=== PATIENT | female | born 1980 | race Caucasian/White ===

== ENCOUNTER 2025-04-02 12:21 | Day surgery (SDC) | payer OTHER ==
[2025-04-02] MEDS: FERRIC CARBOXYMALTOSE 750 MG in SODIUM CHLORIDE 250 ML IVPB ONE (13:08)
[2025-04-02 13:59] VITALS: BP 105/72; PULSE 67; RESP 18; TEMP 98.2
== END 2025-04-02 13:59 | disposition home or self-care (01) ==
LOC: FINFUSION 12:21 → FM/S 12:27 → FINFUSION 13:59
PROVIDERS: ATTEND Family Medicine
PROC: 3E033GC Introduction of Other Therapeutic Substance into Peripheral Vein, Percutaneous Approach (ICD-10-PCS; principal; 2025-04-02)
DX: D50.9 Iron deficiency anemia, unspecified (principal)
CPT/HCPCS: 96365; J1439

== ENCOUNTER 2025-04-10 15:17 | Day surgery (SDC) | payer OTHER ==
[2025-04-10] MEDS: FERRIC CARBOXYMALTOSE 750 MG in SODIUM CHLORIDE 250 ML IVPB SCH (15:54)
[2025-04-10 16:30] VITALS: BP 99/67; PULSE 64; RESP 18; TEMP 98.7
== END 2025-04-10 16:31 | disposition home or self-care (01) ==
LOC: FINFUSION 15:17 → FM/S 15:18 → FINFUSION 16:31
PROVIDERS: ATTEND Family Medicine
PROC: 3E033GC Introduction of Other Therapeutic Substance into Peripheral Vein, Percutaneous Approach (ICD-10-PCS; principal; 2025-04-10)
DX: D50.9 Iron deficiency anemia, unspecified (principal)
CPT/HCPCS: 96365; J1439